=== PATIENT | male | born 1960 | race African-American/Black ===

== ENCOUNTER 2018-08-28 11:21 | Emergency (ER) | payer MEDICAID ==
[~2018-08-28] VITALS: Ht 188 cm; Wt 107.0 kg
[2018-08-28 12:46] VITALS: BP 183/115
== END 2018-08-28 13:00 | disposition home or self-care (01) ==
LOC: ER 11:21
DX: K42.9 Umbilical hernia without obstruction or gangrene (principal)
CPT/HCPCS: 99281; 99282